=== PATIENT | female | born 1940 | race Hispanic/Latino ===

== ENCOUNTER 2017-07-15 09:32 | Outpatient (CLI) | payer MEDICARE, MEDICAID | END 2017-07-15 09:33 | disposition home or self-care (01) | LOC: BICMAMMO 09:32 | PROVIDERS: ATTEND Family Medicine | DX: Z12.31 Encounter for screening mammogram for malignant neoplasm of breast (principal) | CPT/HCPCS: 77063; 77067 ==

== ENCOUNTER 2018-07-16 15:09 | Outpatient (CLI) | payer MEDICARE, MEDICAID | END 2018-07-16 15:10 | disposition home or self-care (01) | LOC: BICMAMMO 15:09 | PROVIDERS: ATTEND Family Medicine | DX: Z12.31 Encounter for screening mammogram for malignant neoplasm of breast (principal) | CPT/HCPCS: 77063; 77067 ==

== ENCOUNTER 2019-05-31 18:21 | Emergency (ER) | payer MEDICARE, MEDICAID ==
[2019-05-31 19:32] LABS: #Basophils 0.1 thou/uL (0.0-0.2); #Eosinphils 0.3 thou/uL (0.0-0.7); #Lymphocytes 3.4 thou/uL (1.20-3.40); #Monocytes 0.7 thou/uL (0.11-0.59); #Neutrophils 3.4 thou/uL (1.40-6.50); %Basophils 0.8 % (0.0-1.0); %Eosinophils 3.6 % (0.0-10.0); %Lymphocytes 43.5 % (21.0-51.0); %Monocytes 9.3 % (0.0-10.0); %Neutrophils 42.8 % (42.0-75.0); Hemoglobin 14.2 g/dL (12.0-16.0); Mean Corpuscular HGB CONC 33.1 g/dL (32.0-36.0); Mean Corpuscular Hemoglobin 29.1 pg (27.0-31.0); Mean Corpuscular Volume 87.8 fL (78.0-98.0); Mean Platelet Volume 8.7 fL (7.4-10.4); Platelet Count 184 thou/uL (130-400); RBC Distribution Width 13.2 % (11.5-14.5); Red Blood Cell (RBC) Count 4.89 mill/uL (4.20-5.40); White Blood Cell (WBC) Count 7.9 thou/uL (4.8-10.8)
[2019-05-31 19:53] LABS: ALT (SGPT) 74 U/L (8-55); AST (SGOT) 79 U/L (5-34); Albumin 4.3 g/dL (3.4-4.8); Alkaline Phosphatase 115 U/L (40-110); Anion Gap 11 mmol/L (10-20); BUN (Urea Nitrogen) 17 mg/dL (9.8-20.1); Bilirubin, Total 0.7 mg/dL (0.2-1.2); Calc. Creatinine Clearance 0 mL/min (70-130); Calcium 9.7 mg/dL (7.8-10.44); Carbon Dioxide 27 mmol/L (23-31); Chloride 105 mmol/L (98-107); Estimated GFR-MDRD 62; Globulin 4.3 g/dL (2.4-3.5); Glucose 109 mg/dL (83-110); Potassium 4.1 mmol/L (3.5-5.1); Protein, Total 8.6 g/dL (6.0-8.3); Sodium 139 mmol/L (136-145)
[2019-05-31 20:21] LABS: Bilirubin Negative (Negative); Blood, Urine Trace (Negative); Clarity Clear (Clear); Glucose, Urine (Dipstick) Normal (Negative); Leukocyte 500 Leu/uL (Negative); Nitrite Negative (Negative); Protein, Urine (Dipstick) Negative (Neg-Trace); Squamous Epithelial 0-3 HPF (0-3); Urobilinogen Normal mg/dL (Less than 2); WBC/HPF Greater than 50 HPF (0-3)
[2019-05-31 20:30] LABS: Bacteria/HPF None Seen HPF (None Seen)
== END 2019-05-31 22:59 | disposition home or self-care (01) ==
LOC: ERS 18:21
DX: N81.10 Cystocele, unspecified (principal); N39.0 Urinary tract infection, site not specified; E11.9 Type 2 diabetes mellitus without complications; E03.9 Hypothyroidism, unspecified; I10 Essential (primary) hypertension; Z79.899 Other long term (current) drug therapy
CPT/HCPCS: 36415; 80053; 81003; 81015; 85025; 87070; 87086; 87480; 87510; 87660; 99283

== ENCOUNTER 2019-07-20 08:22 | Outpatient (CLI) | payer MEDICARE, MEDICAID ==
--- NOTE | 2019-07-20 10:14 | MMO ---
Bilateral MAMMO Bilat Screen [facility]. CLINICAL HISTORY: Patient is 79 years old and is seen for screening. The patient has no family history of breast cancer. The patient has no personal history of cancer. VIEWS: The views performed were: bilateral craniocaudal with tomosynthesis and bilateral mediolateral oblique with tomosynthesis. FILMS COMPARED: The present examination has been compared to prior imaging studies performed at [facility] on 07/05/2015, 07/09/2016, 07/15/2017 and 07/16/2018. This study has been interpreted with the assistance of computer-aided detection. MAMMOGRAM FINDINGS: There are scattered fibroglandular densities. There are stable benign appearing calcifications seen in both breasts. There are also vascular calcifications. There are no suspicious masses, suspicious calcifications, or new areas of architectural distortion. IMPRESSION: THERE IS NO MAMMOGRAPHIC EVIDENCE OF MALIGNANCY. A ROUTINE FOLLOW-UP MAMMOGRAM IN 1 YEAR IS RECOMMENDED. THE RESULTS OF THIS EXAM WERE SENT TO THE PATIENT. ACR BI-RADS Category 2 - Benign finding MAMMOGRAPHY NOTE: 1. A negative mammogram report should not delay a biopsy if a dominant of clinically suspicious mass is present. 2. Approximately 10% to 15% of breast cancers are not detected by mammography. 3. Adenosis and dense breasts may obscure an underlying neoplasm. Reported by: TIFFANY BARAHONA MD Electonically Signed: [id number]
== END 2019-07-20 08:23 | disposition home or self-care (01) ==
LOC: BICMAMMO 08:22
PROVIDERS: ATTEND Family Medicine
DX: Z12.31 Encounter for screening mammogram for malignant neoplasm of breast (principal)
CPT/HCPCS: 77063; 77067

== ENCOUNTER 2020-07-23 08:54 | Outpatient (CLI) | payer MEDICARE, MEDICAID ==
--- NOTE | 2020-07-23 09:37 | MMO ---
Bilateral MAMMO Bilat Screen [facility]. CLINICAL HISTORY: Patient is 80 years old and is seen for screening. The patient has no family history of breast cancer. The patient has no personal history of cancer. VIEWS: The views performed were: bilateral craniocaudal with tomosynthesis; bilateral mediolateral oblique with tomosynthesis; and right craniocaudal. FILMS COMPARED: The present examination has been compared to prior imaging studies performed at [facility] on 07/09/2016, 07/15/2017, 07/16/2018 and 07/20/2019. This study has been interpreted with the assistance of computer-aided detection. MAMMOGRAM FINDINGS: There are scattered fibroglandular densities. There are stable benign appearing calcifications seen in both breasts. There are also vascular calcifications. There are no suspicious masses, suspicious calcifications, or new areas of architectural distortion. IMPRESSION: THERE IS NO MAMMOGRAPHIC EVIDENCE OF MALIGNANCY. A ROUTINE FOLLOW-UP MAMMOGRAM IN 1 YEAR IS RECOMMENDED. THE RESULTS OF THIS EXAM WERE SENT TO THE PATIENT. ACR BI-RADS Category 2 - Benign finding MAMMOGRAPHY NOTE: 1. A negative mammogram report should not delay a biopsy if a dominant of clinically suspicious mass is present. 2. Approximately 10% to 15% of breast cancers are not detected by mammography. 3. Adenosis and dense breasts may obscure an underlying neoplasm. Reported by: TIFFANY BARAHONA MD Electonically Signed: [id number]
== END 2020-07-23 08:55 | disposition home or self-care (01) ==
LOC: BICMAMMO 08:54
PROVIDERS: ATTEND Family Medicine
DX: Z12.31 Encounter for screening mammogram for malignant neoplasm of breast (principal)
CPT/HCPCS: 77063; 77067

== ENCOUNTER 2020-09-23 14:04 | Inpatient (IN) | payer MEDICARE, MEDICAID ==
[2020-09-23 15:36] LABS: #Lymphocytes 1.9 thou/uL (1.20-3.40); #Monocytes 0.7 thou/uL (0.11-0.59); #Neutrophils 5.7 thou/uL (1.40-6.50); %Basophils 0.6 % (0.0-1.0); %Eosinophils 0.6 % (0.0-10.0); %Lymphocytes 22.6 % (21.0-51.0); %Monocytes 8.3 % (0.0-10.0); Hemoglobin 13.7 g/dL (12.0-16.0); Mean Corpuscular HGB CONC 33.5 g/dL (32.0-36.0); Mean Corpuscular Hemoglobin 29.7 pg (27.0-31.0); Mean Corpuscular Volume 88.7 fL (78.0-98.0); Mean Platelet Volume 8.2 fL (7.4-10.4); Platelet Count 163 thou/uL (130-400); RBC Distribution Width 13.3 % (11.5-14.5); Red Blood Cell (RBC) Count 4.62 mill/uL (4.20-5.40); White Blood Cell (WBC) Count 8.3 thou/uL (4.8-10.8)
[2020-09-23 16:01] LABS: ALT (SGPT) 34 U/L (8-55); AST (SGOT) 48 U/L (5-34); Albumin 4.1 g/dL (3.4-4.8); Alkaline Phosphatase 133 U/L (40-110); Anion Gap 11 mmol/L (10-20); BUN (Urea Nitrogen) 19 mg/dL (9.8-20.1); Bilirubin, Total 0.5 mg/dL (0.2-1.2); Calc. Creatinine Clearance 0 mL/min (70-130); Calcium 8.5 mg/dL (7.8-10.44); Carbon Dioxide 25 mmol/L (23-31); Chloride 100 mmol/L (98-107); Glucose 118 mg/dL (83-110); Potassium 4.3 mmol/L (3.5-5.1); Protein, Total 8.1 g/dL (5.8-8.1); Sodium 132 mmol/L (136-145)
[2020-09-23 16:34] LABS: Bacteria/HPF 4+ HPF (None Seen); Bilirubin Negative (Negative); Blood, Urine 1+ (Negative); Clarity Turbid (Clear); Glucose, Urine (Dipstick) Normal (Negative); Ketone, Urine Negative (Negative); Leukocyte 500 Leu/uL (Negative); Nitrite 2+ (Negative); Protein, Urine (Dipstick) Negative (Neg-Trace); Specific Gravity, Urine 1.006 (1.002-1.036); Squamous Epithelial 0-3 HPF (0-3); Urobilinogen Normal mg/dL (Less than 2); WBC/HPF Greater than 50 HPF (0-3); pH, Urine 6.5 (5.0-9.0)
[2020-09-23] MEDS ORDERED: cefTRIAXone\\ROCEPHIN 2 GM VIAL ONE (16:56)
[2020-09-23] MEDS ORDERED: Senokot S 8.6-50 MG TAB PO PRN (17:46)
[2020-09-23] MEDS ORDERED: Ondansetron PF 4 MG/2 ML Vial IVP PRN (17:46)
[2020-09-23] MEDS ORDERED: Loperamide HCl 2 MG CAP PO PRN (17:46)
[2020-09-23] MEDS ORDERED: Bisacodyl 10 MG SUPP PR PRN (17:46)
[2020-09-23] MEDS ORDERED: Ondansetron ODT 4 MG TAB PO PRN (17:46)
[2020-09-23] MEDS ORDERED: Calcium Carbonate 500 MG ChewTAB PO PRN (17:46)
[2020-09-23] MEDS ORDERED: Guaifenesin DM 100-10/5 ML UDCUP PO PRN (17:46)
[2020-09-23] MEDS ORDERED: Zolpidem Tartrate 5 MG TAB PO PRN (17:46)
[2020-09-23] MEDS ORDERED: HYDROcodone/Acetaminophen 5/325 mg Tablet PO PRN (17:46)
[2020-09-23] MEDS ORDERED: cefTRIAXone\\ROCEPHIN 1 GM in Sodium Chloride 0.9% 100 ML IVPB SCH (18:00)
[2020-09-23 19:28] VITALS: BMI 28.8
[2020-09-23 19:42] LABS: Troponin I 0.022 ng/mL (< 0.028)
[2020-09-23 19:56] LABS: Magnesium 2.1 mg/dL (1.6-2.6); Phosphorus 3.6 mg/dL (2.3-4.7)
[2020-09-23] MEDS: Famotidine 20 MG TAB PO SCH (19:58)
[2020-09-23] MEDS: Sodium Chloride 0.9% 1,000 ML IV SCH (19:58)
[2020-09-24 03:56] LABS: Troponin I 0.021 ng/mL (< 0.028)
[2020-09-24 04:39] LABS: SARS-CoV-2 PCR by NAA Not Detected (NotDetected)
[2020-09-24 05:19] LABS: #Basophils 0.1 thou/uL (0.0-0.2); #Eosinphils 0.1 thou/uL (0.0-0.7); #Lymphocytes 2.9 thou/uL (1.20-3.40); #Monocytes 0.8 thou/uL (0.11-0.59); #Neutrophils 4.5 thou/uL (1.40-6.50); %Basophils 0.8 % (0.0-1.0); %Eosinophils 1.1 % (0.0-10.0); %Lymphocytes 34.2 % (21.0-51.0); %Monocytes 9.9 % (0.0-10.0); Hemoglobin 12.1 g/dL (12.0-16.0); Mean Corpuscular HGB CONC 33.3 g/dL (32.0-36.0); Mean Corpuscular Hemoglobin 29.6 pg (27.0-31.0); Mean Corpuscular Volume 88.8 fL (78.0-98.0); Mean Platelet Volume 8.2 fL (7.4-10.4); Platelet Count 156 thou/uL (130-400); RBC Distribution Width 13.1 % (11.5-14.5); Red Blood Cell (RBC) Count 4.07 mill/uL (4.20-5.40); White Blood Cell (WBC) Count 8.3 thou/uL (4.8-10.8)
[2020-09-24 05:42] LABS: Anion Gap 11 mmol/L (10-20); BUN (Urea Nitrogen) 14 mg/dL (9.8-20.1); Calc. Creatinine Clearance 65 mL/min (70-130); Calcium 7.9 mg/dL (7.8-10.44); Carbon Dioxide 22 mmol/L (23-31); Chloride 107 mmol/L (98-107); Glucose 93 mg/dL (83-110); Potassium 3.9 mmol/L (3.5-5.1); Sodium 136 mmol/L (136-145)
[2020-09-24] MEDS: Famotidine 20 MG TAB PO SCH ×2 (07:46→19:50)
[2020-09-24] MEDS: Acetaminophen 325 MG TAB PO PRN ×2 (07:47→19:00)
[2020-09-24] MEDS: Sodium Chloride 0.9% 1,000 ML IV SCH (09:20)
[2020-09-24] MEDS ORDERED: cefTRIAXone\\ROCEPHIN 1 GM in Sodium Chloride 0.9% 100 ML IVPB SCH (17:00)
[2020-09-24] MEDS: Trospium 20 MG TAB PO SCH (19:50)
[2020-09-24] MEDS: Latanoprost 0.005% Ophth Soln 2.5 ml Bottle EA EYE SCH (19:50)
[2020-09-24] MEDS: DorzolamidE/Timolol 2%/0.5% Ophth Soln 10 ml Bottle EA EYE SCH (19:50)
[2020-09-24] MEDS ORDERED: CARBAMAZEPINE 100 MG PO SCH (21:00)
[2020-09-25] MEDS: Sodium Chloride 0.9% 1,000 ML IV SCH ×3 (00:47→20:49)
[2020-09-25] MEDS: Levothyroxine Sodium 50 MCG TAB PO SCH (05:39)
[2020-09-25] MEDS: Acetaminophen 325 MG TAB PO PRN ×2 (05:42→20:50)
[2020-09-25] MEDS: DorzolamidE/Timolol 2%/0.5% Ophth Soln 10 ml Bottle EA EYE SCH ×2 (08:30→20:45)
[2020-09-25] MEDS: Trospium 20 MG TAB PO SCH ×2 (08:31→20:48)
[2020-09-25] MEDS: Losartan 25 MG TAB PO SCH (08:31)
[2020-09-25] MEDS: Famotidine 20 MG TAB PO SCH ×2 (08:31→20:47)
[2020-09-25] MEDS ORDERED: Tolterodine Tartrate LA 4 MG CAP PO SCH (09:00)
[2020-09-25] MEDS: carBAMazepine 100 mg Chewable Tablet PO SCH (20:46)
[2020-09-25] MEDS: Nitrofurantoin Monohyd/M-Cryst 100 MG CAP PO SCH (20:48)
[2020-09-25] MEDS: Latanoprost 0.005% Ophth Soln 2.5 ml Bottle EA EYE SCH (20:54)
[2020-09-26] MEDS: Levothyroxine Sodium 50 MCG TAB PO SCH (04:34)
[2020-09-26] MEDS: Nitrofurantoin Monohyd/M-Cryst 100 MG CAP PO SCH (09:02)
[2020-09-26] MEDS: Trospium 20 MG TAB PO SCH (09:02)
[2020-09-26] MEDS: Famotidine 20 MG TAB PO SCH (09:03)
[2020-09-26] MEDS: carBAMazepine 100 mg Chewable Tablet PO SCH (09:03)
[2020-09-26] MEDS: DorzolamidE/Timolol 2%/0.5% Ophth Soln 10 ml Bottle EA EYE SCH (09:04)
[2020-09-26] MEDS: Losartan 25 MG TAB PO SCH (09:49)
[2020-09-26] MEDS ORDERED: CEFAZOLIN 1 GM VIAL ONE (12:00)
[2020-09-26] MEDS ORDERED: Gentamicin 80 MG/2 ML VIAL ONE (12:00)
[2020-09-26] MEDS ORDERED: Lidocaine 1% (PF) 30 ML VIAL ONE (12:06)
[2020-09-26] MEDS ORDERED: Midazolam HCl 2 mg/2 ml Vial ONE (12:51)
[2020-09-26] MEDS ORDERED: Acetaminophen/Codeine 30-300mg Tablet PO PRN (14:05)
[2020-09-26] MEDS: Sodium Chloride 0.9% 1,000 ML IV SCH (14:45)
[2020-09-26 15:46] VITALS: BP 139/92; TEMP 97.5
[2020-09-26] MEDS: Acetaminophen 325 MG TAB PO PRN (18:45)
== END 2020-09-26 18:54 | disposition home or self-care (01) | DRG 243 ==
LOC: ERS 14:04 → OBSVTOIN 17:14 → INTOOBSV 17:14 → 2SW 17:14 → UNDOADMOB 17:14 → 2SW 09-24 13:54 → OBSVTOIN 09-24 13:54 → UNDODISIN 09-26 18:54
PROVIDERS: ADMIT Internal Medicine; ATTEND Internal Medicine
PROC: 0JH606Z Insertion of Pacemaker, Dual Chamber into Chest Subcutaneous Tissue and Fascia, Open Approach (ICD-10-PCS; principal; 2020-09-26)
PROC: 02H63JZ Insertion of Pacemaker Lead into Right Atrium, Percutaneous Approach (ICD-10-PCS; 2020-09-26)
PROC: 02HK3JZ Insertion of Pacemaker Lead into Right Ventricle, Percutaneous Approach (ICD-10-PCS; 2020-09-26)
DX: I49.5 Sick sinus syndrome (principal); E87.1 Hypo-osmolality and hyponatremia; N30.00 Acute cystitis without hematuria; Z20.822 Contact with and (suspected) exposure to COVID-19; E11.9 Type 2 diabetes mellitus without complications; E03.9 Hypothyroidism, unspecified; I10 Essential (primary) hypertension; E86.0 Dehydration; I45.5 Other specified heart block; I44.0 Atrioventricular block, first degree; I44.7 Left bundle-branch block, unspecified; H40.9 Unspecified glaucoma; B96.20 Unspecified Escherichia coli [E. coli] as the cause of diseases classified elsewhere; Z79.899 Other long term (current) drug therapy; Z91.81 History of falling
CPT/HCPCS: 33249; 36415; 36416; 70450; 71045; 72125; 80048; 80053; 81003; 81015; 83735; 84100; 84484; 85025; 87077; 87086; 87186; 87635; 93005; 93010; 93306; 96365; 99152; 99153; C1785; C1898; G0378; J0690; J0696; J1580; J2001; J2250; J3490; U0003; U0005

== ENCOUNTER 2020-12-19 08:36 | Outpatient (CLI) | payer MEDICARE, MEDICAID | END 2020-12-19 08:37 | disposition home or self-care (01) | LOC: BICULT 08:36 | PROVIDERS: ATTEND Family Medicine | DX: R79.89 Other specified abnormal findings of blood chemistry (principal); R74.8 Abnormal levels of other serum enzymes; Z90.49 Acquired absence of other specified parts of digestive tract | CPT/HCPCS: 76705 ==

== ENCOUNTER 2021-05-30 13:12 | Outpatient (CLI) | payer MEDICARE, MEDICAID | END 2021-05-30 13:13 | disposition home or self-care (01) | LOC: ULT 13:12 | PROVIDERS: ATTEND Family Medicine | DX: I70.211 Atherosclerosis of native arteries of extremities with intermittent claudication, right leg (principal) | CPT/HCPCS: 93923 ==

== ENCOUNTER 2022-02-14 10:12 | Outpatient (CLI) | payer MEDICARE, MEDICAID ==
[2022-02-14 12:10] LABS: Mean Corpuscular HGB CONC 33.5 g/dL (32.0-36.0); Mean Corpuscular Hemoglobin 29.8 pg (27.0-33.0); Mean Platelet Volume 9.7 fl (7.4-10.4); Platelet Count 216 10x3/uL (150-450); RBC Distribution Width 13.2 % (11.5-14.5); Red Blood Cell (RBC) Count 4.36 10x6/uL (3.90-5.03); White Blood Cell (WBC) Count 5.5 10x3/uL (3.5-10.5)
[2022-02-14 12:34] LABS: Anion Gap 11 mmol/L (10-20); BUN (Urea Nitrogen) 12 mg/dL (9.8-20.1); Calc. Creatinine Clearance 0 mL/min (70-130); Carbon Dioxide 25 mmol/L (23-31); Chloride 98 mmol/L (98-107); Estimated GFR 76; Glucose 105 mg/dL (83-110); Potassium 4.4 mmol/L (3.5-5.1); Sodium 130 mmol/L (136-145)
[2022-02-14 12:35] LABS: INR-International Normal Ratio 1.1; PTT 27.8 sec (22.0-33.0); Prothrombin Time 11.5 sec (9.5-12.1)
== END 2022-02-14 10:13 | disposition home or self-care (01) ==
LOC: LABBT 10:12
PROVIDERS: ATTEND Internal Medicine Cardiovascular Disease
DX: Z01.812 Encounter for preprocedural laboratory examination (principal); Z20.822 Contact with and (suspected) exposure to COVID-19
CPT/HCPCS: 80048; 85027; 85610; 85730; 87811

== ENCOUNTER 2022-02-19 07:06 | Day surgery (SDC) | payer MEDICARE, MEDICAID ==
[2022-02-14 10:16] VITALS: BMI 29.9
[2022-02-19 09:07] LABS: Cardiac Risk 2.1 (Less than 4.5)
[2022-02-19] MEDS ORDERED: Fentanyl 100 MCG/2 ML VIAL ONE (09:12)
[2022-02-19] MEDS ORDERED: Midazolam HCl 2 mg/2 ml Vial ONE (09:12)
[2022-02-19] MEDS ORDERED: Heparin 10,000 UNITS/ 10 ML VIAL ONE (09:13)
[2022-02-19] MEDS ORDERED: Lidocaine 1% (PF) 30 ML VIAL ONE (09:13)
[2022-02-19] MEDS ORDERED: Nitroglycerin 100MG/250ML BOT 0 ML ONE (09:13)
[2022-02-19] MEDS ORDERED: Protamine Sulfate 50 MG/5 ML VIAL ONE (10:44)
[2022-02-19] MEDS ORDERED: Iopamidol 370 76% 100 ML VIAL ONE (15:37)
== END 2022-02-19 14:45 | disposition home or self-care (01) ==
LOC: SDC 07:06
PROVIDERS: ATTEND Internal Medicine Cardiovascular Disease
PROC: 4A023N7 Measurement of Cardiac Sampling and Pressure, Left Heart, Percutaneous Approach (ICD-10-PCS; principal; 2022-02-19)
PROC: B2111ZZ Fluoroscopy of Multiple Coronary Arteries using Low Osmolar Contrast (ICD-10-PCS; 2022-02-19)
DX: R94.39 Abnormal result of other cardiovascular function study (principal); I25.10 Atherosclerotic heart disease of native coronary artery without angina pectoris; I10 Essential (primary) hypertension; E03.9 Hypothyroidism, unspecified; E11.9 Type 2 diabetes mellitus without complications; I44.7 Left bundle-branch block, unspecified; I48.0 Paroxysmal atrial fibrillation; Z79.890 Hormone replacement therapy; Z79.899 Other long term (current) drug therapy
CPT/HCPCS: 80061; 85347; 93458; 93571; 99152; 99153; C1769; J0153; J1644; J2001; J2250; J2720; J3010; Q9967

== ENCOUNTER 2022-08-14 12:28 | Emergency (ER) | payer MEDICARE, MEDICAID ==
[2022-08-14 14:03] LABS: #Eosinphils 0.1 thou/uL (0.0-0.7); #Lymphocytes 1.3 thou/uL (1.20-3.40); #Monocytes 0.5 thou/uL (0.11-0.59); #Neutrophils 3.5 thou/uL (1.40-6.50); %Basophils 0.3 % (0.0-1.0); %Eosinophils 1.1 % (0.0-10.0); %Lymphocytes 23.7 % (21.0-51.0); %Monocytes 8.4 % (0.0-10.0); %Neutrophils 66.5 % (42.0-75.0); Hemoglobin 12.5 g/dL (12.0-16.0); Mean Corpuscular HGB CONC 33.1 g/dL (32.0-36.0); Mean Corpuscular Hemoglobin 30.5 pg (27.0-31.0); Mean Corpuscular Volume 92.3 fl (78.0-98.0); Mean Platelet Volume 7.2 fL (7.4-10.4); Platelet Count 173 10x3/uL (130-400); Red Blood Cell (RBC) Count 4.09 mill/uL (4.20-5.40); White Blood Cell (WBC) Count 5.3 10x3/uL (4.8-10.8)
[2022-08-14 14:23] LABS: ALT (SGPT) 42 U/L (8-55); AST (SGOT) 49 U/L (5-34); Alkaline Phosphatase 124 U/L (40-110); Anion Gap 12 mmol/L (10-20); BUN (Urea Nitrogen) 10 mg/dL (9.8-20.1); Bilirubin, Total 0.5 mg/dL (0.2-1.2); Calc. Creatinine Clearance 0 mL/min (70-130); Calcium 8.8 mg/dL (7.8-10.44); Carbon Dioxide 25 mmol/L (23-31); Chloride 100 mmol/L (98-107); Estimated GFR 67; Globulin 3.5 g/dL (2.4-3.5); Glucose 145 mg/dL (83-110); Protein, Total 7.5 g/dL (5.8-8.1); Sodium 133 mmol/L (136-145)
[2022-08-14 15:07] LABS: Bilirubin Negative (Negative); Blood, Urine Negative (Negative); Clarity Clear (Clear); Glucose, Urine (Dipstick) 70 mg/dL (Negative); Ketone, Urine Negative (Negative); Leukocyte Negative Leu/uL (Negative); Nitrite Negative (Negative); Protein, Urine (Dipstick) Negative (Neg-Trace); Specific Gravity, Urine 1.007 (1.002-1.036); Urobilinogen Normal mg/dL (Less than 2); pH, Urine 6.5 (5.0-9.0)
== END 2022-08-14 15:20 | disposition home or self-care (01) ==
LOC: ERS 12:28
DX: M25.552 Pain in left hip (principal); M25.512 Pain in left shoulder; E11.9 Type 2 diabetes mellitus without complications; I10 Essential (primary) hypertension; E03.9 Hypothyroidism, unspecified; W18.30XA Fall on same level, unspecified, initial encounter; Z79.899 Other long term (current) drug therapy
CPT/HCPCS: 36415; 51701; 70450; 71045; 72125; 80053; 81003; 84484; 85025; 93005

== ENCOUNTER 2022-09-24 11:35 | Outpatient (CLI) | payer MEDICARE, MEDICAID | END 2022-09-24 11:36 | disposition home or self-care (01) | LOC: BICMAMMO 11:35 | PROVIDERS: ATTEND Family Medicine | DX: Z12.31 Encounter for screening mammogram for malignant neoplasm of breast (principal) | CPT/HCPCS: 77063; 77067 ==

== ENCOUNTER 2022-10-19 07:24 | Inpatient (IN) | payer MEDICARE, MEDICAID ==
[2022-10-19] MEDS ORDERED: Lidocaine 1% PF 5 ML VIAL ONE (07:40)
[2022-10-19] MEDS ORDERED: Lidocaine 1% w/Epinephrine 1:100K 20 ML VIAL ONE (07:40)
[2022-10-19] MEDS ORDERED: fentaNYL 50 mcg/mL 1 mL Vial ONE (08:06)
[2022-10-19] MEDS ORDERED: Boostrix 0.5 ML (Tdap) VIAL (>/=7 yrs of age) ONE (08:06)
[2022-10-19] MEDS ORDERED: Bacitracin 1 PK ONE ×2 (08:06→13:24)
[2022-10-19 08:13] LABS: #Monocytes 0.4 thou/uL (0.11-0.59); #Neutrophils 5.2 thou/uL (1.40-6.50); %Basophils 0.3 % (0.0-1.0); %Eosinophils 0.7 % (0.0-10.0); %Lymphocytes 14.7 % (21.0-51.0); %Monocytes 6.1 % (0.0-10.0); %Neutrophils 78.2 % (42.0-75.0); Hemoglobin 11.6 g/dL (12.0-16.0); Mean Corpuscular HGB CONC 32.1 g/dL (32.0-36.0); Mean Corpuscular Hemoglobin 29.1 pg (27.0-31.0); Mean Corpuscular Volume 90.5 fl (78.0-98.0); Mean Platelet Volume 6.9 fL (7.4-10.4); Platelet Count 189 10x3/uL (130-400); RBC Distribution Width 13.1 % (11.5-14.5); Red Blood Cell (RBC) Count 3.99 mill/uL (4.20-5.40); White Blood Cell (WBC) Count 6.7 10x3/uL (4.8-10.8)
[2022-10-19] MEDS ORDERED: Iopamidol-370 76% 500 ML MDV (1 ML CHARGE) ONE (08:41)
[2022-10-19 09:09] LABS: Calcium 7.6 mg/dL (7.8-10.44); Chloride 102 mmol/L (98-107); Potassium 4.1 mmol/L (3.5-5.1); Sodium 128 mmol/L (136-145)
[2022-10-19 09:10] LABS: Protein, Total 5.6 g/dL (5.8-8.1)
[2022-10-19 09:11] LABS: Anion Gap 12 mmol/L (10-20); Carbon Dioxide 18 mmol/L (23-31)
[2022-10-19 09:12] LABS: Bilirubin, Total 0.4 mg/dL (0.2-1.2)
[2022-10-19 09:15] LABS: AST (SGOT) 36 U/L (5-34)
[2022-10-19 09:29] LABS: ALT (SGPT) 33 U/L (8-55); Alkaline Phosphatase 102 U/L (40-110); BUN (Urea Nitrogen) 6 mg/dL (9.8-20.1); Calc. Creatinine Clearance 0 mL/min (70-130); Estimated GFR 87; Globulin 2.6 g/dL (2.4-3.5); Glucose 146 mg/dL (83-110)
[2022-10-19] MEDS ORDERED: Insulin Regular 300 UNITS/3 ML VIAL SC PRN (11:30)
[2022-10-19] MEDS ORDERED: Ondansetron PF 4 MG/2 ML Vial IVP PRN (11:30)
[2022-10-19] MEDS ORDERED: Dextrose 5% in Water 1,000 ML IV PRN (11:30)
[2022-10-19] MEDS ORDERED: Dextrose 50% Abboject 50 ML SYRINGE SLOW IVP PRN (11:30)
[2022-10-19] MEDS ORDERED: Ipratropium/Albuterol 3 ML NEB NEB PRN (11:30)
[2022-10-19] MEDS ORDERED: Morphine 2 MG/ML VIAL SLOW IVP PRN (11:30)
[2022-10-19 15:23] VITALS: BMI 29.0
[2022-10-19] MEDS: Acetaminophen 500 MG TAB PO SCH ×2 (15:53→18:43)
[2022-10-19] MEDS: Dexamethasone 4 mg/ml Vial SLOW IVP SCH ×2 (15:53→21:03)
[2022-10-19] MEDS: traMADol HCl 50 MG TAB PO SCH ×2 (16:00→21:03)
[2022-10-19] MEDS: Sodium Chloride 0.9% 1,000 ML IV SCH (16:01)
[2022-10-19] MEDS: Famotidine/PF 20 mg/2ml Vial SLOW IVP SCH (21:03)
[2022-10-19] MEDS: carBAMazepine 100 mg Chewable Tablet PO SCH (21:04)
[2022-10-20] MEDS: Acetaminophen 500 MG TAB PO SCH ×3 (00:41→12:19)
[2022-10-20] MEDS: Sodium Chloride 0.9% 1,000 ML IV SCH (00:43)
[2022-10-20] MEDS: Dexamethasone 4 mg/ml Vial SLOW IVP SCH ×2 (04:30→12:20)
[2022-10-20 04:32] LABS: #Lymphocytes 1.1 thou/uL (1.20-3.40); #Monocytes 0.3 thou/uL (0.11-0.59); #Neutrophils 4.9 thou/uL (1.40-6.50); %Basophils 0.1 % (0.0-1.0); %Eosinophils 0.1 % (0.0-10.0); %Lymphocytes 17.4 % (21.0-51.0); %Monocytes 4.5 % (0.0-10.0); %Neutrophils 77.9 % (42.0-75.0); Mean Corpuscular HGB CONC 34.5 g/dL (32.0-36.0); Mean Corpuscular Hemoglobin 31.6 pg (27.0-31.0); Mean Corpuscular Volume 91.5 fl (78.0-98.0); Mean Platelet Volume 7.2 fL (7.4-10.4); Platelet Count 158 10x3/uL (130-400); RBC Distribution Width 13.2 % (11.5-14.5); Red Blood Cell (RBC) Count 3.15 mill/uL (4.20-5.40); White Blood Cell (WBC) Count 6.2 10x3/uL (4.8-10.8)
[2022-10-20 04:55] LABS: Anion Gap 11 mmol/L (10-20); BUN (Urea Nitrogen) 8 mg/dL (9.8-20.1); Calc. Creatinine Clearance 69 mL/min (70-130); Calcium 8.3 mg/dL (7.8-10.44); Carbon Dioxide 20 mmol/L (23-31); Chloride 101 mmol/L (98-107); Estimated GFR 87; Glucose 147 mg/dL (83-110); Potassium 4.1 mmol/L (3.5-5.1); Sodium 128 mmol/L (136-145)
[2022-10-20] MEDS ORDERED: Levothyroxine Sodium 50 MCG TAB PO SCH (06:00)
[2022-10-20] MEDS: traMADol HCl 50 MG TAB PO SCH (08:42)
[2022-10-20] MEDS: carBAMazepine 100 mg Chewable Tablet PO SCH (08:42)
[2022-10-20] MEDS: Famotidine/PF 20 mg/2ml Vial SLOW IVP SCH (08:43)
[2022-10-20] MEDS ORDERED: Losartan 25 MG TAB PO SCH (09:00)
[2022-10-20 11:57] VITALS: BP 129/61; TEMP 97.7
[2022-10-21] MEDS ORDERED: Escitalopram Oxalate 10 mg Tablet PO SCH (09:00)
== END 2022-10-20 15:45 | disposition home or self-care (01) | DRG 159 ==
LOC: ERS 07:24 → OBSVTOIN 11:30 → 2NO 11:30
PROVIDERS: ADMIT Surgery; ATTEND Surgery
DX: S02.612A Fracture of condylar process of left mandible, initial encounter for closed fracture (principal); W18.30XA Fall on same level, unspecified, initial encounter; I49.5 Sick sinus syndrome; S01.81XA Laceration without foreign body of other part of head, initial encounter; E11.9 Type 2 diabetes mellitus without complications; E03.9 Hypothyroidism, unspecified; I10 Essential (primary) hypertension; F32.A Depression, unspecified; E78.5 Hyperlipidemia, unspecified; Z95.0 Presence of cardiac pacemaker; Z79.01 Long term (current) use of anticoagulants; Z79.899 Other long term (current) drug therapy; Z79.890 Hormone replacement therapy
CPT/HCPCS: 12011; 36415; 36416; 70450; 70486; 71260; 72125; 72170; 74177; 80048; 80053; 84484; 85025; 86850; 86900; 86901; 90471; 90715; 93005; 93306; 96374; G0390; J1100; J3010; J7050; Q9967; S0028

== ENCOUNTER 2022-12-24 19:41 | Emergency (ER) | payer MEDICARE, MEDICAID ==
[2022-12-24] MEDS ORDERED: Lidocaine 1% w/Epinephrine 1:100K 20 ML VIAL ONE (20:27)
== END 2022-12-24 21:59 | disposition home or self-care (01) ==
LOC: ERS 19:41
DX: S80.01XA Contusion of right knee, initial encounter (principal); E11.9 Type 2 diabetes mellitus without complications; E03.9 Hypothyroidism, unspecified; I10 Essential (primary) hypertension; Z79.01 Long term (current) use of anticoagulants; Z79.899 Other long term (current) drug therapy
CPT/HCPCS: 10060; 36416

== ENCOUNTER 2023-01-21 08:59 | Outpatient (CLI) | payer MEDICARE, MEDICAID | END 2023-01-21 09:00 | disposition home or self-care (01) | LOC: BICULT 08:59 | PROVIDERS: ATTEND Family Medicine | DX: R74.8 Abnormal levels of other serum enzymes (principal) | CPT/HCPCS: 76700 ==

== ENCOUNTER 2023-02-18 13:53 | Outpatient (CLI) | payer MEDICARE, MEDICAID | END 2023-02-18 13:54 | disposition home or self-care (01) | LOC: RAD 13:53 | PROVIDERS: ATTEND Family Medicine | DX: M54.50 Low back pain, unspecified (principal); M54.2 Cervicalgia; M43.9 Deforming dorsopathy, unspecified; M47.812 Spondylosis without myelopathy or radiculopathy, cervical region | CPT/HCPCS: 36415; 72040; 72100; 80053; 82607; 85025 ==